=== PATIENT | male | born 1945 | race Caucasian/White ===

== ENCOUNTER → 2017-02-15 09:48 | Outpatient (CLI) | payer MEDICARE, OTHER ==
[~2017-02-15 09:48] MED LIST: ASPIRIN81 MG PO; FIBERCON625 MG PO; GLUCOPHAGE1000 MG PO; GLUCOTROL 5 MG T5 MG PO; HYDROCODONE-APA1 TAB PO; HYZAAR 100-12.51 TAB PO; JANUVIA100 MG PO; KRILL OIL 1,001 EAC1 PO; LIPITOR20 MG PO; NORVASC5 MG PO; OMEPRAZOLE20 M1 PO; SYNTHROID150 MCG PO; TOUJEO SOL300 UNIT/1 SC
[2017-03-03 08:07] VITALS: BMI 31.9
== END | disposition home or self-care (01) ==
LOC: D.RAD 09:48
DX: S83.231A Complex tear of medial meniscus, current injury, right knee, initial encounter (principal); X58.XXXA Exposure to other specified factors, initial encounter; Y93.89 Activity, other specified; Y92.89 Other specified places as the place of occurrence of the external cause

== ENCOUNTER 2017-03-03 07:10 | Day surgery (SDC) | payer MEDICARE, OTHER ==
[2017-03-02 14:55] LABS: HEMATOCRIT 41.6 % (42.0-54.0); HEMOGLOBIN 14.4 g/dL (13.5-17.5); MCHC 34.6 g/dL (31.0-37.0); MCV 89.5 fL (80.0-100.0); MEAN PLATELET VOLUME 10.8 fL (7.4-10.4); RBC 4.65 10x6/uL (4.20-6.10); RDW 13.1 % (11.5-14.5); WBC 4.9 10x3/uL (4.8-10.8)
[2017-03-02 15:28] LABS: CALC OSMOLALITY 278 mosm/kg (275-300); CALCIUM 9.8 mg/dL (8.5-10.1); CARBON DIOXIDE 28.2 mmol/L (21.0-32.0); CHLORIDE - SERUM 99 mmol/L (98-107); GLUCOSE 116 mg/dL (74-106); SODIUM 138 mmol/L (136-145); UREA NITROGEN 19 mg/dL (7-18); eGFR NON AFRICAN AMERICAN 78 mL/min (90-120)
[~2017-03-03] VITALS: Ht 182.9 cm; Wt 106.6 kg
[~2017-03-03 07:10] MED LIST changes: -HYDROCODONE-APA1 TAB PO
[2017-03-03 08:07] VITALS: BP 138/95; Ht 182.9 cm; Wt 106.6 kg
[2017-03-03] MEDS ORDERED: HYDROCODONE-APA1 TAB PO (12:01)
--- NOTE | 2017-03-03 14:06 | OP ---
PATIENT NAME: JOAO PARK MEDICAL RECORD: [id number] :45 LOCATION:[facility] ADMISSION DATE: SURGEON: PAULA HAYDEN MD DATE OF OPERATION: 03/03/2017 PREOPERATIVE DIAGNOSIS: Lateral meniscus tear of the right knee. POSTOPERATIVE DIAGNOSES: 1. Lateral meniscus tear of the right knee. 2. Grade III chondromalacia of the medial femoral condyle. PROCEDURE: Arthroscopic partial lateral meniscectomy. SURGEON: Paula Hayden MD ANESTHESIA: General. INTRAOPERATIVE COMPLICATIONS: None. 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 This required saucerization of the meniscus with removal of the tear. He did have some noted chondromalacia on the medial side. OPERATIVE SUMMARY IN DETAIL: After obtaining the appropriate preoperative orthopedic surgery consent as well as anesthetic consultation, evaluation and clearance, the patient was brought to the operating room and placed on the operating table in supine position. After general laryngeal mask airway was administered, tourniquet was placed about the proximal aspect of the right lower extremity. Right lower extremity was then prepped and draped in a routine sterile fashion. The leg was elevated, exsanguinated and tourniquet was inflated to 350 mmHg. Routine inferolateral portal was established followed by superior medial portal. Diagnostic arthroscopy at this point was done. The chondromalacia seen on the medial side was immediately treated with gentle chondroplasty to the medial femoral condyle. Having completed this, attention was turned to the lateral aspect. Substantial large center flap was photographed and then removed and then further saucerization was carried out to create a more normal appearing lateral meniscus. No specific significant chondromalacia was seen in the lateral compartment. Having completed this, the knee was insufflated with 30 cc of 0.25% Marcaine with epinephrine and 80 mg of Depo-Medrol. Arthroscopy portals were closed in routine interrupted fashion using 4-0 Prolene. Sterile dressings were applied. The patient was awakened and taken to the recovery room in stable condition. All final needle and sponge counts were correct. TRANSINT:[id number] Voice Confirmation ID: [id number] DOCUMENT ID: [id number] OPERATIVE REPORT [id number] XAVIERJOAO MD, PAULA ANDREW at 1406 CC: [id number] DICTATION DATE: 03/03/17 1300 [employer] REPRESENTATIVE: 03/03/17 1314 REG [facility] [address] [id number]
--- NOTE | 2017-03-03 15:27 | NUR ---
1400--IV DC'D. JUDITH PRITCHARD 1415--DISCHARGE INSTRUCTIONS GIVEN, PT VERBALIZES UNDERSTANDING. PT OFF UNIT VIA WC. JUDITH PRITCHARD
== END 2017-03-03 14:15 | disposition home or self-care (01) ==
LOC: D.OPS 07:10 → D.PAN 10:10 → D.OPS 14:00
PROVIDERS: Anesthesiology
DX: S83.251A Bucket-handle tear of lateral meniscus, current injury, right knee, initial encounter (principal); M94.261 Chondromalacia, right knee; Z01.812 Encounter for preprocedural laboratory examination; X58.XXXA Exposure to other specified factors, initial encounter